=== PATIENT | female | born 1980 | race Caucasian/White ===

== ENCOUNTER → 2017-04-09 | Outpatient (CLI) | payer OTHER ==
[~2017-04-09] MED LIST: BUPR1SUB23 SL; CLON1TAB3 PO; GABA800T PO
[2017-04-09 16:38] LABS: BASO % 0.2 %; BASO ABS # 0.01 K/uL (0-0.2); EOS % 2.2 %; HEMATOCRIT 22.8 % (37-47); IG% 0.4 %; LYMPH % 22.6 %; LYMPH ABS # 1.22 K/uL (1.2-3.4); MEAN CELL VOLUME 93.1 fL (80-100); MEAN CORPUSCULAR HEMOGLOBIN 30.2 pg (25-34); MEAN CORPUSCULAR HGB CONC 32.5 g/dl (32-36); MEAN PLATELET VOLUME 9.1 fL (7.4-10.4); MONO % 6.5 %; NEUT % 68.1 %; PLATELET COUNT 267 K/uL (130-400); RED BLOOD COUNT 2.45 M/uL (4.2-5.4); WHITE BLOOD COUNT 5.39 K/uL (4.8-10.8)
[2017-04-09 17:07] LABS: ALT/SGPT 15 U/L (12-78); BLOOD UREA NITROGEN 18 mg/dl (7-18); BUN/CREATININE RATIO 9.5 (10-20); CALCIUM 7.9 mg/dl (8.5-10.1); CARBON DIOXIDE 23 mmol/L (21-32); CHLORIDE 106 mmol/L (98-107); GLUCOSE 87 mg/dl (70-99); POTASSIUM 4.3 mmol/L (3.5-5.1); SODIUM 134 mmol/L (136-145)
[2017-04-09 17:10] LABS: ALB/GLOB RATIO 0.3 (0.9-2); ALKALINE PHOSPHATASE 136 U/L (45-117); AST/SGOT 27 U/L (15-37); C-REACTIVE PROTEIN 7.95 mg/dl (0-0.29)
[2017-04-09 17:24] LABS: COMPLETE YES; SPHEROCYTE 1+
== END | disposition home or self-care (01) ==
LOC: C.LAB1850 15:22
PROVIDERS: ATTEND Internal Medicine Infectious Disease
DX: Z00.00 Encounter for general adult medical examination without abnormal findings (principal)

== ENCOUNTER 2019-01-01 11:11 | Inpatient (IN) ==
--- OUTSIDE RECORDS SUMMARY | 2019-01-01 11:15 | External Medical Summary | Continuity of Care Document ---
:1980 Author Name Kristine Leslie Address Unavailable Unavailable , Care Team Providers Name Role Phone Tasia Unavailable [email or web address] Leslie Unavailable [email or web address] Unavailable [email or web address], [email or web address] Unavailable Unavailable Unavailable Unavailable Unavailable Problems Paraparesis (Lower Extremities) (344.1) Urine Content Abnormal Incomplete emptying of bladder (788.21) (R33.9) Tingling (782.0) (R20.2) Bipolar I disorder, single manic episode (296.00) (F30.9) Chronic pain (338.29) (G89.29) Decubitus ulcer (707.00) (L89.90) Vertebral osteomyelitis (730.28) (M46.20) Allergies and Adverse Reactions Abilify (Allergy) Bactrim TABS (Allergy) Reaction: Hives Morphine Derivatives (Allergy) Titanium (Allergy) Reaction: Nausea, Vomiting, Anemia Toradol (Allergy) Medications Doxycycline Monohydrate 100 MG Oral Caps ule; TAKE 1 CAPSULE TWICE DAILY WITH FOOD. DO Tonia Haines Start: 14-May-2017 Quantity: 56 Refills: 1 clonazePAM 0.5 MG Oral Tablet; TAKE 1 TABLET 3 TIMES DAILY A S NEEDED. Start: 09-Apr-2017 Refills: 0 Gabapentin 800 MG Oral Tablet; TAKE 1 TABLET 3 TIMES DAILY. Start: 09-Apr-2017 Refills: 0 fentaNYL 75 MCG/HR Transdermal Patch 72 Hour; APPLY 1 PATCH EVERY 3 DAYS Start: 09-Apr-2017 Refills: 0 Catheter Red Rubber Coated MISC; USE FAVIAN LY DIRECTED.12 [employer] Red Rubber Hose DO Elie Dozier Start: 21-Dec-2013 Quantity: 30 Refills: 0 Procedures History of Back Surgery Status: Complete d History of Cholecystectomy Laparoscopic Status: Completed History of Amputation Of Leg Above Knee Status: Completed Immunizations Immunizations not documented Family History Father Family history of Acute Myocardial Infarction (V17.3) Status : Active Family history of Hypertension (V17.49) Status: Active Mother Family history of Angina Pectoris Status: Active Family history of Hypertension (V17.49) Status: Active Grandfather Family history of Hypertension (V17.49) Status: Active Family history of Coronary Artery Disease (V17.49) Status: A ctive Grandmother Family history of Type 2 Diabetes Mellitus Status: Active Family history of Hypertension (V17.49) Status: Active Social History - Smoking Status Current every day smoker Plan of Treatment Planned Encounters Appointment; Yi Cochran M.D. Start: 26-Jan-2019 14:20 Request Planned Observations Planned Goals not documented Results No Known Results Results not documented Encounters Appointment; Tonia Haines DO 17-Sep-2017 14:00 Encounter Diagnosis: Problem not documented Appointment; Tonia Haines DO 11-Jun-2017 14:00 Encounter Diagnosis: Problem not documented Appointment; Tonia Haines DO 14-May-2017 13:15 Encounter Diagnosis: Problem not documented Appointment; Tonia Haines DO 09-Apr-2017 14:30 Encounter Diagnosis: Problem not documented Appointment; Yi Cochran M.D. 26-Jan-2019 14:20 Encounter Diagnosis: Problem not documented
[2019-01-01 11:56] LABS: Basophils # (auto) 0.01 K/uL (0-0.2); Basophils % (auto) 0.1 %; Eosinophils % (auto) 1.2 %; Hemoglobin 7.7 g/dL (12.0-16.0); Immature Granulocytes # (auto) 0.03 K/uL (0.00-0.02); Immature Granulocytes % (auto) 0.4 %; Lymphocytes # (auto) 1.08 K/uL (1.2-3.4); Lymphocytes % (auto) 13.2 %; Mean Corpuscular Hgb Conc 33.5 g/dL (32-36); Mean Corpuscular Volume 96.2 fL (80-100); Mean Platelet Volume 9.6 fL (7.4-10.4); Monocytes # (auto) 0.41 K/uL (0.11-0.59); Neutrophils # (auto) 6.58 K/uL (1.4-6.5); Neutrophils % (auto) 80.1 %; Platelet Count 218 K/uL (130-400); RDW Coefficient of Variation 13.7 % (11.5-14.5); Red Blood Count 2.39 M/uL (4.2-5.4); White Blood Count 8.21 K/uL (4.8-10.8)
[2019-01-01 12:02] LABS: iSTAT Creatinine 9.8 mg/dl (0.6-1.3); iSTAT Hemoglobin 8.8 g/dl (12.0-16.0); iSTAT Ionized Calcium 1.01 mmol/l (1.12-1.32)
[2019-01-01 12:08] LABS: INR 1.2 (0.9-1.1); Partial Thromboplastin Ratio 1.1; Partial Thromboplastin Time 30.5 Seconds (21.0-31.0); Prothrombin Time 11.7 Seconds (9.0-12.0)
--- NOTE | 2019-01-01 12:12 | XRay Report ---
SINGLE VIEW CHEST CLINICAL HISTORY: Dyspnea. FINDINGS: An AP, portable, upright chest radiograph is compared to study dated 11/18/2009. The examina tion is degraded by portable technique and patient rotation. A right internal jugular central venous catheter is in place. The tip projects over the right atrium. The heart is top normal for projection. There is pulmonary vascular congestion. There is elevation of right hemidiaphragm end bibasilar atel ectasis. Trace pleural effusions are suspected. No pneumothorax is seen. The bony thorax is grossly i ntact. IMPRESSION: 1. There is mild pulmonary vascular congestion. 2. Trace pleural effusions are noted. 3. A right internal jugular central venous catheter is in place. Electronically signed by: Ori Cruz M.D. 01/01/2019 12:10 PM
[2019-01-01 12:13] LABS: RBC Morphology Unremarkable
[2019-01-01] MEDS ORDERED: NITROGLYCERIN 2% OINTMENT 30GM TUBE EXT ONE (12:22)
[2019-01-01 12:35] LABS: Alanine Aminotransferase 18 U/L (12-78); Albumin Globulin Ratio 0.8 (0.9-2); Albumin Level 3.5 gm/dl (3.4-5.0); Alkaline Phosphatase 86 U/L (45-117); Aspartate Aminotransferase 24 U/L (15-37); BUN Creatinine Ratio 11.5 (10-20); Bilirubin,Total 0.5 mg/dl (0.2-1); Blood Urea Nitrogen 104 mg/dl (7-18); Carbon Dioxide 20 mmol/L (21-32); Chloride 96 mmol/L (98-107); Est GFR (African American) 5.8; Globulin 4.5 gm/dl (2.5-4.0); Glucose 95 mg/dl (70-99); Magnesium 2.8 mg/dl (1.8-2.4); Sodium 131 mmol/L (136-145); Troponin I 0.022 ng/ml (0-0.045)
[2019-01-01] MEDS ORDERED: HYDROmorphone INJ 0.5 MG/0.5 ML SYR IV STA (12:59)
[2019-01-01] MEDS ORDERED: ONDANSETRON INJ 2 MG/ML 2 ML VIAL IV STA (12:59)
[2019-01-01] MEDS ORDERED: SODIUM CHLORIDE 0.9% 1000ML 1,000 ML IV PRN (12:59)
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
--- NOTE | 2019-01-01 13:44 | Emergency Department Note ---
Entered by Maya Betancourt acting as a scribe for Eduarda Lockhart MD History of Present Illness General Chief complaint: Shortness of Breath/Dyspnea Stated complaint: SOB,FLUID Time Seen by Provider: 01/01/19 11:27 Source: patient and other (nursing staff) History of Present Illness Provider complaint: shortness of breath Onset (ago): hour(s) (today) Location: chest Maximum Pain Intensity: 9 Quality: + other (shortness of breath ) Associated symptoms: + other (hit head) The patient is a 38 year old female who presents to the Emergency Department with complaints of shortness of breath today. She rates her discomfort at a 9/10. Per nursing staff, the patient was 80% on room air upon arrival. Nursing staff states that the patient fell off of her bed and hit her head. Per nursing staff, the patient goes to dialysis but did not go in 6 days as they are "not nice there" per the patient. Home Medications Home Medications Medication Instructions Recorded Confirmed Type albuterol sulfate [Ventolin HFA] 2 puff INHALATION Q6H PRN 01/01/19 01/01/19 History benzonatate 100 mg PO BID 01/01/19 01/01/19 History bupropion HCl 100 mg PO DAILY 01/01/19 01/01/19 History diazepam 5 mg PO BID 01/01/19 01/01/19 History gabapentin 600 mg PO TID 01/01/19 01/01/19 History levofloxacin 500 mg PO DIRECTED 01/01/19 01/01/19 History Allergies Allergy/AdvReac Type Severity Reaction Status Date / Time morphine Allergy Mild RASH Unverified 01/01/19 12:18 aripiprazole AdvReac Intermediate ITCHY NOSE Unverified 01/01/19 12:18 & EARS Bactrim AdvReac Intermediate ITCHY NOSE Unverified 07/20/15 11:14 & EARS sulfamethoxazole AdvReac Intermediate ITCHY NOSE Unverified 01/01/19 12:18 & EARS trimethoprim AdvReac Intermediate ITCHY NOSE Unverified 01/01/19 12:18 & EARS Past Med/Surg History Medical History Hypertensive urgency (Acute) DVT prophylaxis Chronic back pain (Chronic) Non-compliance (Acute) ESRD on hemodialysis (Acute) Fluid overload (Acute) Respiratory failure (Acute) Dialysis patient (Chronic) Surgical History Above knee amputation of left lower extremity (Resolved) Social History Preferred Language: Kinyarwanda Communication Ability: Effective Cisco Administrator Required: No Current Living Situation Comment: Unknown. Unable to answer questions; no family present. Feels Safe at Home: Yes Smoking Status: Smoker, status unknown Review of Systems See HPI for pertinent positives & negatives. and A total of 10 systems reviewed and were otherwise negative Physical Exam Vital Signs Vital Signs - 24 hr 01/01/19 11:14 01/01/19 11:46 01/01/19 12:06 Temperature Source Oral Sepsis Recent Fever Within 48 Hours No Sepsis New/Unexplained Change in Mental Status No Sepsis Action Taken by Nursing No Action Required Pulse Rate 127 H Pulse Rate [Apical] 108 H Pulse Rhythm [Apical] Pulse Strength [Apical] Respiratory Rate 50 H 22 Respiratory Effort / Characteristics Non-Labored Respiratory Depth Normal Respiratory Pattern Regular Blood Pressure [Right Arm] 232/144 H Blood Pressure Mean [Right Arm] 173 Blood Pressure Position Sitting Blood Pressure Position [Right Arm] Pulse Oximetry 81 L 81 L 100 Oxygen Delivery Method Room Air Room Air Non-rebreather Oxygen Flow Rate 01/01/19 12:08 01/01/19 12:37 01/01/19 13:31 Temperature Source Sepsis Recent Fever Within 48 Hours Sepsis New/Unexplained Change in Mental Status Sepsis Action Taken by Nursing Pulse Rate Pulse Rate [Apical] 112 H 101 H Pulse Rhythm [Apical] Regular Pulse Strength [Apical] Normal Respiratory Rate 22 22 Respiratory Effort / Characteristics Non-Labored Spontaneous Non-Labored Spontaneous Respiratory Depth Normal Normal Respiratory Pattern Regular Regular Blood Pressure [Right Arm] 162/130 H 208/122 H Blood Pressure Mean [Right Arm] 140 150 Blood Pressure Position Blood Pressure Position [Right Arm] Sitting Sitting Pulse Oximetry 100 93 92 Oxygen Delivery Method Non-rebreather Nasal Cannula Nasal Cannula Oxygen Flow Rate 13 2 4 Vital signs reviewed. Markedly hypertensive. General: Chronically ill-appearing female, in no significant distress. HEENT: No scleral icterus, PERRLA, neck supple. Atraumatic. Cardiovascular: Regular but tachycardic, no extra sounds. Pulmonary: Non-rebreather in place. Coarse breath sounds bilaterally. In some respiratory discomfort. Maintaining O2 sats well on NRB->weaned to n/c Abdomen: Soft, nontender, obese, nondistended, positive bowel sounds. Musculoskeletal: Left AKA. Minimal RLE edema, deconditioned. Neurologic: Patient awake but somnolent. Skin: Warm, dry, no rash Course 1131: The patient was evaluated in room A1. A history and physical were performed. 1140: I inserted an External Jugular Catheter. 2 attempts. 1232: I discussed the patient's case with Dr. Ryan Chávez who will evaluate the patient for further management. 1241: I updated the patient who verbalized agreement and understanding of the treatment plan. 1253: I discussed the patient's case with Dr. Cochran-Nephrology. Consultations Consultation #1: Dr. Ryan Chávez Time: 12:32 Consultation #2: Dr. Cochran-Nephrology Time: 12:53 Administered Medications Discontinued Medications Hydrocodone Bitart/Acetaminophen ([place] 5/325) 1 tab PO Q6H PRN PRN Reason: Pain Stop: 01/16/19 12:26 Last Admin: 01/02/19 13:31 Dose: 1 tab Documented by: [id number] Amlodipine Besylate (Norvasc) 10 mg PO QAM [facility] Stop: 02/01/19 08:59 Last Admin: 01/02/19 13:29 Dose: 10 mg Documented by: [id number] Benzonatate (Tessalon Perle) 100 mg PO BID [facility] Stop: 01/31/19 20:59 Last Admin: 01/02/19 08:21 Dose: 100 mg Documented by: [id number] Admin: 01/01/19 20:46 Dose: 100 mg Documented by: [id number] Bupropion HCl (Wellbutrin-Sr) 100 mg PO DAILY [facility] Stop: 02/01/19 08:59 Last Admin: 01/02/19 08:21 Dose: 100 mg Documented by: [id number] Diazepam (Valium) 5 mg PO BID [facility] Stop: 01/31/19 20:59 Last Admin: 01/02/19 08:19 Dose: 5 mg Documented by: [id number] Admin: 01/01/19 20:46 Dose: 5 mg Documented by: [id number] Enoxaparin Sodium (Lovenox) 30 mg SQ Q24H [facility] Stop: 01/31/19 14:11 Last Admin: 01/01/19 15:32 Dose: Not Given Documented by: [id number] Epoetin Mauro (Procrit) 20,000 units IV 1430 [facility] Stop: 01/01/19 23:00 Last Admin: 01/01/19 16:24 Dose: 20,000 units Documented by: [id number] Gabapentin (Neurontin) 600 mg PO TID [facility] Stop: 01/31/19 14:11 Last Admin: 01/02/19 08:21 Dose: 600 mg Documented by: [id number] Admin: 01/01/19 20:46 Dose: 600 mg Documented by: [id number] Admin: 01/01/19 15:18 Dose: Not Given Documented by: [id number] Heparin Sodium (Porcine) (Heparin Sodium (Porcine)) 5,000 units SQ Q8 [facility] Stop: 01/31/19 21:59 Last Admin: 01/02/19 13:30 Dose: 5,000 units Documented by: [id number] Cosigned by: [id number] Admin: 01/02/19 06:26 Dose: 5,000 units Documented by: [id number] Cosigned by: [id number] Admin: 01/01/19 20:47 Dose: 5,000 units Documented by: [id number] Cosigned by: [id number] Hydromorphone HCl (Dilaudid) 0.5 mg IV NOW STA Stop: 01/01/19 13:00 Last Admin: 01/01/19 13:15 Dose: 0.5 mg Documented by: [id number] Hydromorphone HCl (Dilaudid) 0.5 mg IV Q3H PRN PRN Reason: Pain Stop: 01/15/19 14:11 Last Admin: 01/02/19 08:25 Dose: 0.5 mg Documented by: [id number] Admin: 01/02/19 05:46 Dose: 0.5 mg Documented by: [id number] Admin: 01/02/19 01:24 Dose: 0.5 mg Documented by: [id number] Admin: 01/01/19 21:10 Dose: 0.5 mg Documented by: [id number] Sodium Chloride (Nss 1000ml) 1,000 mls @ 0 mls/hr IV .Q0M PRN PRN Reason: For Hemodialysis Use ONLY Stop: 01/01/19 18:58 Last Infusion: 01/01/19 16:33 Dose: 0 mls/hr Documented by: [id number] Admin: 01/01/19 16:24 Dose: 350 mls/hr Documented by: [id number] Calcium Gluconate 1,000 mg/ (Sodium Chloride) 60 mls @ 240 mls/hr IV NOW STA Stop: 01/01/19 14:31 Last Infusion: 01/01/19 15:32 Dose: 0 mls/hr Documented by: [id number] Admin: 01/01/19 15:18 Dose: 240 mls/hr Documented by: [id number] Nicardipine HCl 25 mg/ Sodium (Chloride) 250 mls @ 0 mls/hr IV .Q0M [facility] Stop: 01/31/19 14:44 Last Infusion: 01/02/19 19:11 Dose: 0 mg/hr, 0 mls/hr Documented by: [id number] Infusion: 01/02/19 09:02 Dose: 0 mg/hr, 0 mls/hr Documented by: [id number] Admin: 01/02/19 08:21 Dose: 5 mg/hr, 50 mls/hr Documented by: [id number] Cosigned by: [id number] Infusion: 01/02/19 08:21 Dose: 5 mg/hr, 50 mls/hr Documented by: [id number] Cosigned by: [id number] Infusion: 01/02/19 06:55 Dose: 5 mg/hr, 50 mls/hr Documented by: [id number] Cosigned by: [id number] Admin: 01/02/19 03:35 Dose: 5 mg/hr, 50 mls/hr Documented by: [id number] Cosigned by: [id number] Infusion: 01/02/19 03:35 Dose: 5 mg/hr, 50 mls/hr Documented by: [id number] Cosigned by: [id number] Admin: 01/01/19 22:47 Dose: 5 mg/hr, 50 mls/hr Documented by: [id number] Cosigned by: [id number] Infusion: 01/01/19 22:30 Dose: 5 mg/hr, 50 mls/hr Documented by: [id number] Cosigned by: [id number] Infusion: 01/01/19 18:45 Dose: 5 mg/hr, 50 mls/hr Documented by: [id number] Cosigned by: [id number] Infusion: 01/01/19 16:33 Dose: 0 mg/hr, 0 mls/hr Documented by: [id number] Admin: 01/01/19 15:17 Dose: 5 mg/hr, 50 mls/hr Documented by: [id number] Cosigned by: [id number] Metoprolol Tartrate ([facility]op[facility]) [facility] [place] Stop: 02/01/19 08:59 Last Admin: 01/02/19 11:45 Dose: Not Given Documented by: [id number] Miscellaneous (Carbohydrates For Hypoglycemia) 15 gm PO ONCE PRN PRN Reason: Hypoglycemia Treatment Stop: 02/01/19 08:59 Last Admin: 01/02/19 13:43 Dose: 15 gm Documented by: [id number] Admin: 01/02/19 09:17 Dose: 15 gm Documented by: [id number] Admin: 01/02/19 09:01 Dose: 15 gm Documented by: [id number] Nitroglycerin (Nitro-Bid 2%) 1 inch EXT NOW ONE Stop: 01/01/19 12:23 Last Admin: 01/01/19 15:18 Dose: Not Given Documented by: [id number] Nitroglycerin (Nitro-Bid 2%) 1 inch EXT Q6H [facility] Stop: 01/31/19 14:59 Last Admin: 01/02/19 13:30 Dose: Not Given Documented by: [id number] Admin: 01/02/19 08:22 Dose: Not Given Documented by: [id number] Admin: 01/02/19 04:03 Dose: Not Given Documented by: [id number] Admin: 01/01/19 20:47 Dose: 1 inch Documented by: [id number] Admin: 01/01/19 15:19 Dose: Not Given Documented by: [id number] Ondansetron HCl (Zofran) 4 mg IV NOW STA Stop: 01/01/19 13:00 Last Admin: 01/01/19 13:15 Dose: 4 mg Documented by: [id number] Ondansetron HCl (Zofran) 4 mg IV NOW STA Stop: 01/02/19 01:20 Last Admin: 01/02/19 01:24 Dose: 4 mg Documented by: [id number] Pantoprazole Sodium (Protonix) [address] [facility] Stop: 02/01/19 08:59 Last Admin: 01/02/19 08:21 Dose: 40 mg Documented by: [id number] Pneumococcal Polyvalent Vaccine (Pneumovax-23) 25 mcg IM .ONCE ONE Stop: 01/01/19 20:46 Last Admin: 01/02/19 08:22 Dose: Not Given Documented by: [id number] Medical Decision Making Differential Diagnosis Differential diagnosis: Etiologies such as infections, reactive airway disease, COPD, pneumonia, pleural effusion, pulmonary edema, ARDS, pneumothorax, CHF, cardiac ischemia, cardiac tamponade, dysrhythmia, anemia, pulmonary embolism, musculoskeletal, gastrointestinal process, as well as others were entertained. Medical Records Attestation: I reviewed the patient's medical records. Home Medications Current Medication List: was personally reviewed by me Laboratory Data Attestation: I reviewed the patient's lab results. Result diagrams: 01/02/19 05:23 01/02/19 05:23 Lab Results 01/01/19 01/01/19 01/01/19 Range/Units 11:40 11:40 11:40 WBC 8.21 (4.8-10.8) K/uL RBC 2.39 L (4.2-5.4) M/uL Hgb 7.7 L (12.0-16.0) g/dL POC Hgb (12.0-16.0) g/dl Hct 23.0 L (37-47) % POC Hct (37-47) % MCV 96.2 (80-100) fL MCH 32.2 (25-34) pg MCHC 33.5 (32-36) g/dL RDW Std Deviation 48.0 H (36.4-46.3) fL RDW Coeff of Luciano 13.7 (11.5-14.5) % Plt Count 218 (130-400) K/uL MPV 9.6 (7.4-10.4) fL Immature Gran % (Auto) 0.4 % Neut % (Auto) 80.1 % Lymph % (Auto) 13.2 % [place] % (Auto) 5.0 % Eos % (Auto) 1.2 % Baso % (Auto) 0.1 % Immature Gran # (Auto) 0.03 H (0.00-0.02) K/uL Neut # (Auto) 6.58 H (1.4-6.5) K/uL Lymph # (Auto) 1.08 L (1.2-3.4) K/uL [place] # (Auto) 0.41 (0.11-0.59) K/uL Eos # (Auto) 0.10 (0-0.5) K/uL Baso # (Auto) 0.01 (0-0.2) K/uL RBC Morphology Unremarkable PT 11.7 (9.0-12.0) Seconds INR 1.2 H (0.9-1.1) APTT 30.5 (21.0-31.0) Seconds PTT Ratio 1.1 POC Sodium (135-144) mEq/L Sodium 131 L (136-145) mmol/L POC Potassium (3.3-5.0) mEq/L Potassium 5.0 (3.5-5.1) mmol/L POC Chloride (101-112) mEq/L Chloride 96 L (98-107) mmol/L Carbon Dioxide 20 L (21-32) mmol/L POC Total CO2 (24-31) mEq/l Anion Gap 15.0 H (3-11) POC Anion Gap (16-25) mmol/L POC BUN (7-18) mg/dl BUN 104 H (7-18) mg/dl Creatinine 9.05 H* (0.6-1.2) mg/dl POC Creatinine (0.6-1.3) mg/dl Est Cr Clr Drug Dosing Not Reportable Est GFR ( Amer) 5.8 Est GFR (Non-Af Amer) 5.0 BUN/Creatinine Ratio 11.5 (10-20) Glucose 95 (70-99) mg/dl POC Glucose (other) (70-99) mg/dl Calcium 8.0 L (8.5-10.1) mg/dl POC Ioniz Calcium Hugh (1.12-1.32) mmol/l Magnesium 2.8 H (1.8-2.4) mg/dl Total Bilirubin 0.5 (0.2-1) mg/dl AST 24 (15-37) U/L ALT 18 (12-78) U/L Alkaline Phosphatase 86 (45-117) U/L Troponin I 0.022 (0-0.045) ng/ml Total Protein 8.0 (6.4-8.2) gm/dl Albumin 3.5 (3.4-5.0) gm/dl Globulin 4.5 H (2.5-4.0) gm/dl Albumin/Globulin Ratio 0.8 L (0.9-2) Hep Bs Antigen (Neg) Hep Bs Antibody Hep Bs Antibody, Quant (>or=10mIU/mL Immune) mIU/mL 01/01/19 01/01/19 Range/Units 11:40 11:45 WBC (4.8-10.8) K/uL RBC (4.2-5.4) M/uL Hgb (12.0-16.0) g/dL POC Hgb 8.8 L (12.0-16.0) g/dl Hct (37-47) % POC Hct 26 L (37-47) % MCV (80-100) fL MCH (25-34) pg MCHC (32-36) g/dL RDW Std Deviation (36.4-46.3) fL RDW Coeff of Luciano (11.5-14.5) % Plt Count (130-400) K/uL MPV (7.4-10.4) fL Immature Gran % (Auto) % Neut % (Auto) % Lymph % (Auto) % [place] % (Auto) % Eos % (Auto) % Baso % (Auto) % Immature Gran # (Auto) (0.00-0.02) K/uL Neut # (Auto) (1.4-6.5) K/uL Lymph # (Auto) (1.2-3.4) K/uL [place] # (Auto) (0.11-0.59) K/uL Eos # (Auto) (0-0.5) K/uL Baso # (Auto) (0-0.2) K/uL RBC Morphology PT (9.0-12.0) Seconds INR (0.9-1.1) APTT (21.0-31.0) Seconds PTT Ratio POC Sodium 131 L (135-144) mEq/L Sodium (136-145) mmol/L POC Potassium 5.0 (3.3-5.0) mEq/L Potassium (3.5-5.1) mmol/L POC Chloride 97 L (101-112) mEq/L Chloride (98-107) mmol/L Carbon Dioxide (21-32) mmol/L POC Total CO2 20 L (24-31) mEq/l Anion Gap (3-11) POC Anion Gap 20.0 (16-25) mmol/L POC BUN 114 H* (7-18) mg/dl BUN (7-18) mg/dl Creatinine (0.6-1.2) mg/dl POC Creatinine 9.8 H* (0.6-1.3) mg/dl Est Cr Clr Drug Dosing Est GFR ( Amer) Est GFR (Non-Af Amer) BUN/Creatinine Ratio (10-20) Glucose (70-99) mg/dl POC Glucose (other) 98 (70-99) mg/dl Calcium (8.5-10.1) mg/dl POC Ioniz Calcium Hugh 1.01 L (1.12-1.32) mmol/l Magnesium (1.8-2.4) mg/dl Total Bilirubin (0.2-1) mg/dl AST (15-37) U/L ALT (12-78) U/L Alkaline Phosphatase (45-117) U/L Troponin I (0-0.045) ng/ml Total Protein (6.4-8.2) gm/dl Albumin (3.4-5.0) gm/dl Globulin (2.5-4.0) gm/dl Albumin/Globulin Ratio (0.9-2) Hep Bs Antigen Neg (Neg) Hep Bs Antibody Immune Hep Bs Antibody, Quant 27.62 (>or=10mIU/mL Immune) mIU/mL Imaging Data Radiologist's Impression: Radiology results as stated below per my review and the radiologist's interpretation: SINGLE VIEW CHEST CLINICAL HISTORY: Dyspnea. FINDINGS: An AP, portable, upright chest radiograph is compared to study dated 11/18/2009. The examination is degraded by portable technique and patient rotati on. A right internal jugular central venous catheter is in place. The tip projects over the right atrium. The heart is top normal for projection. There is pulmonary vascular congestion. There is elevation of right hemidiaphragm end bibasilar atelectasis. Trace pleural effusions are suspected. No pneumothorax is seen. The bony thorax is grossly intact. IMPRESSION: 1. There is mild pulmonary vascular congestion. 2. Trace pleural effusions are noted. 3. A right internal jugular central venous catheter is in place. Electronically signed by: Ori Cruz M.D. 01/01/2019 12:10 PM ECG Data Attestation: I personally reviewed and interpreted this ECG as follows: Indication: SOB/dyspnea Rate (beats per minute): 116 Rhythm: sinus tachycardia Findings: + other (poor quality baseline, no acute T wave abnormalities); no nonspecific-ST abn Blood Pressure Blood Pressure Findings: Elevated blood pressure Blood Pressure Disposition: further management by hospitalist MDM Narrative THis pt was evaluated and appeared to be in some respiratory discomfort. SHe is noted to be hypoxic and hypertensive on arrival. Pt was placed on NRB by nursing with improvement. She was weaned to n/c. NTG paste was applied. Nursing was unable to get peripheral line, an EJ was inserted by me after two attempts. Pt tolerated well. EKG reveals a tachycardia, but no peaked T waves. CXR is c/w fluid overload. Pt does not make significant urine. Pt was asking for pain medication, she was given dilaudid 0.5 mg IV and zofran [address] Cochran of nephrology was contacted in addition to the hospitalist for further managment. Pt is aware of the plan and agrees. Impression & Plan Non-compliance, ESRD on hemodialysis, Fluid overload, Respiratory failure Critical Care Time The high probability of a clinically significant, sudden or life threatening deterioration of the CV/resp system(s) required my full and direct attention, intervention and personal management. The aggregate critical care time was [] minutes. This time is in addition to time spent performing reported procedures but includes the following: [x] Data Review and interpretation [x] Patient assessment and monitoring of vital signs [x] Documentation [x] Medication orders and management Critical Care Time: Yes (30) Discharge Plan Visit Data *Final* Discharge Date/Time: 01/01/19 13:33 Chief Complaint: Shortness of Breath/Dyspnea Stated Complaint: SOB,FLUID ED Provider: Eduarda Lockhart Discharge Problem: Non-compliance, ESRD on hemodialysis, Fluid overload, Respiratory failure Patient Disposition: Admitted As Inpatient Discharge Instructions Interventions: ED Discharge Assessment Last Done: 01/01/19 13:33 Discharge Problem: Fluid overload Qualifiers: Hypervolemia type: unspecified Qualified Code(s): E87.70 - Fluid overload, unspecified Respiratory failure Qualifiers: Chronicity: acute Respiratory failure complication: hypoxia Qualified Code(s): J96.01 - Acute respiratory failure with hypoxia The scribe's documentation has been prepared under my direction and personally reviewed by me in its entirety. I confirm that the note above accurately reflects all work, treatment, procedures, and medical decision making performed by me.
[2019-01-01] MEDS ORDERED: ALBUTEROL HFA 8 GM INHALER INH PRN (14:12)
[2019-01-01] MEDS ORDERED: ENOXAPARIN INJ 30 MG/0.3 ML SYR SQ SCH (14:12)
[2019-01-01] MEDS ORDERED: ICU PROTOCOL FOR HYPERGLYCEMIA PRN (14:12)
[2019-01-01] MEDS ORDERED: CALCIUM GLUCONATE 10% 1,000 MG in SODIUM CHLORIDE 0.9% 50 ML IV STA (14:17)
[2019-01-01] MEDS ORDERED: EPOETIN ALFA 20,000 UNITS/ML VIAL IV SCH (14:30)
--- NOTE | 2019-01-01 14:35 | Critical Care Consultation ---
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 neuro control BP with cardene drip respiratory supplement with O2 pNC and titrate to SpO2>92% She is on albuterol at home. No clear history of asthma/COPD. This was probably given for symptomatic relief. Will place her on albuterol nebs CV cardene drip. She does not seem to have BP meds at home or statins maintain SBP<140 and DBP<90 GI NPO for now until HD done and encephalopathy resolves pepcid IV renal IV Calcium given needs urgent HD ID she has levofloxacin at home although CXR is clear and there is no urine. Will observe off antibiotics for now and send blood cultures DVT prophylaxis SC heparin as she is uremic. Endo will send HbA1c Will check FS and cover accordingly Lines She has EJ on the left HD access on the R SC Patient is ill and I spent 55 minutes of CCtime managing her today Present on Admission?: Yes History of Present Illness Reason for Consultation: Uremic encephalopathy. Hypertensive urgency Requesting Physician: Tenzin Medina MD Attending Physician: Aram Garcia MD History of Present Illness This is a 38-year-old female with end-stage renal disease who started dialysis last year. She is not a good historian. She is somnolent and encephalopathic. She is arousable but does not give information. She seems to have missed 2 or 3 dialysis appointments. The ED reports she presented markedly short of breath and in hypertensive urgency 232/144. Apprently SpO2 was 81% on RA per INTERIOR DESIGN COORDINATOR. ABGs are pending. Her BP improved with the application of topical nitrates. She does not make any urine. She is reported to have history of back trauma and extensive back surgery involving the thoracic and lumbar spine but is only on Gabapentin and Valium. Nephrology has been contacted and will see her as soon as possible. She has a tunneled catheter in the right subclavian area visulaized on CXR and noted on PE. Concurrently she has a left upper extremity fistula with a very well palpable thrill. She is upper normal K 5.0. She is chronically anemic with Hb is 7.7 . In april 2017 it was 7.4. No evidence of active bleeding. However, she is uremic (BUN 114) both chemically and clinically At the bedside she is drowsy with [place] at 15-24/min no retraction or distress, she is arousable but falls right back into stupor. No tenderness elicited and no meaningful history. She is missing LLE Allergies Allergy/AdvReac Type Severity Reaction Status Date / Time morphine Allergy Mild RASH Unverified 01/01/19 12:18 aripiprazole AdvReac Intermediate ITCHY NOSE Unverified 01/01/19 12:18 & EARS Bactrim AdvReac Intermediate ITCHY NOSE Unverified 07/20/15 11:14 & EARS sulfamethoxazole AdvReac Intermediate ITCHY NOSE Unverified 01/01/19 12:18 & EARS trimethoprim AdvReac Intermediate ITCHY NOSE Unverified 01/01/19 12:18 & EARS Home Medications Home Medications Medication Instructions Recorded Confirmed Type albuterol sulfate [Ventolin HFA] 2 puff INHALATION Q6H PRN 01/01/19 01/01/19 History benzonatate 100 mg PO BID 01/01/19 01/01/19 History bupropion HCl 100 mg PO DAILY 01/01/19 01/01/19 History diazepam 5 mg PO BID 01/01/19 01/01/19 History gabapentin 600 mg PO TID 01/01/19 01/01/19 History levofloxacin 500 mg PO DIRECTED 01/01/19 01/01/19 History Patient History Medical History Hypertensive urgency (Acute) DVT prophylaxis Chronic back pain (Chronic) Non-compliance (Acute) ESRD on hemodialysis (Acute) Fluid overload (Acute) Respiratory failure (Acute) Dialysis patient (Chronic) Surgical History Above knee amputation of left lower extremity (Resolved) Social History Preferred Language: Slovak Feels Safe at Home: Yes Smoking Status: Current every day smoker Review of Systems Review of Systems: Unobtainable due to cognitive status Physical Exam Constitutional: + ill appearing and + altered mental status Eyes: reactive pupils ENMT: external ear and nose normal, oropharynx normal Neck: trachea midline, no thyromegaly Respiratory: Auscultation: lungs clear to auscultation bilaterally Cardiovascular: Rate/Rhythm: regular rate and regular rhythm Heart Sounds: normal S1, normal S2 and + cardiac rub; no murmur Gastrointestinal (Abdomen): normal bowel sounds, soft, nontender, no hepatosplenomegaly Musculoskeletal: Absent LLE AKA. pulses felt all over no cyanosis or edema Skin: no rashes, warm and dry dusky skin with a uremic color Neurologic: withdraws to pain in all 4 extremities Psychiatric: stuporous but arousable Results & Data Vital Signs (Past 12 Hours) Vital Signs Pulse Pulse Resp BP Pulse Ox 01/01/19 13:31 101 H 22 208/122 H 92 01/01/19 12:37 112 H 22 162/130 H 93 01/01/19 12:08 100 01/01/19 12:06 108 H 22 232/144 H 100 01/01/19 11:46 81 L 01/01/19 11:14 127 H 50 H 81 L Critical Care Time Critical Care Time: Yes Total Critical Care Time: 55 55 min (1) Respiratory failure Chronicity: acute Respiratory failure complication: hypoxia Qualified Co de(s): J96.01 - Acute respiratory failure with hypoxia
--- NOTE | 2019-01-01 14:51 | Nephrology Consultation ---
Date of Consultation January 01, 2019 Assessment & Plan (1) Respiratory failure: (2) Fluid overload: (3) Hypertensive urgency: (4) ESRD on hemodialysis: 38-year-old female with end-stage renal disease, on hemodialysis Wednesday, Wednesday, Wednesday. Presents to the hospital missed dialysis for almost a week, volume overloaded and in hypertensive urgency. Not a lot of information at this point regarding her end-stage renal disease and previous dialysis. She does have a AV fistula and tunneled dialysis catheter. Since his dialysis unit is closed on Wednesday will have to get more information from dialysis unit as well as from patient once she is more able to communicate.. --will schedule for emergency dialysis, considering missed dialysis, significantly elevated BUN and overall mental status, will do slow dialysis low blood flow for 3 hours --schedule for 4 hours dialysis tomorrow --we will use the tunneled dialysis catheter for now --Epogen 18382 units x1 dose during dialysis today --start on x1 tablet t.i.d. with meal when starts on p.o. --Nephrocaps 1 cap daily when started on p.o. Thank you for allowing me to participate in your patient's care. It was a pleasure to see Reyna History of Present Illness Reason for Consultation: End-stage renal disease on hemodialysis. Attending Physician: Aram Garcia MD History of Present Illness Reyna Christy is 38-year-old female with past medical history significant for ESRD, hypertension presented to ER with missed dialysis, volume overload and hypertensive urgency. Nephrology consult was requested to manage emergency hemodialysis for volume overload and missed dialysis chronic medical records including labs and imaging reviewed during patient's visit. Reyna presented to hospital with multiple complaints including shortness of breath, missed dialysis, " pneumonia", fall. On admission she was found to be volume overloaded, in hypertensive urgency with systolic blood pressure to 210. Her oxygen saturation was 84 percent on room air which improved to 92 percent with 4 liters nasal cannula oxygen. Blood pressure slightly improved after ni tro paste was given. She currently since very much lethargy, did not respond to any question although she seems to be awake and moving her extremities. All the information was received from EMR review and discussion with other providers and nursing staff. According to the record she has been on dialysis for last almost a year at the dialysis unit in [place]. Cause for her end-stage renal not known at this time. She has a left brachiocephalic AV fistula with thrill and bruit and seemed to have some procedure recently. She also has a right IJ tunnel dialysis catheter. She is on dialysis Wednesday, Wednesday, Wednesday and her last dialysis was last Wednesday in she missed dialysis on Wednesday and Wednesday. According to the report she did not go to the lab dialysis unit as she fell they were not nice to her. On admission her potassium was 5.0 creatinine was 9.6. Hemoglobin was 7.7. Is unclear whether she continues to make urine. Allergies Allergy/AdvReac Type Severity Reaction Status Date / Time morphine Allergy Mild RASH Unverified 01/01/19 12:18 aripiprazole AdvReac Intermediate ITCHY NOSE Unverified 01/01/19 12:18 & EARS Bactrim AdvReac Intermediate ITCHY NOSE Unverified 07/20/15 11:14 & EARS sulfamethoxazole AdvReac Intermediate ITCHY NOSE Unverified 01/01/19 12:18 & EARS trimethoprim AdvReac Intermediate ITCHY NOSE Unverified 01/01/19 12:18 & EARS Home Medications Home Medications Medication Instructions Recorded Confirmed Type albuterol sulfate [Ventolin HFA] 2 puff INHALATION Q6H PRN 01/01/19 01/01/19 History benzonatate 100 mg PO BID 01/01/19 01/01/19 History bupropion HCl 100 mg PO DAILY 01/01/19 01/01/19 History diazepam 5 mg PO BID 01/01/19 01/01/19 History gabapentin 600 mg PO TID 01/01/19 01/01/19 History levofloxacin 500 mg PO DIRECTED 01/01/19 01/01/19 History Patient History Medical History Hypertensive urgency (Acute) DVT prophylaxis Chronic back pain (Chronic) Non-compliance (Acute) ESRD on hemodialysis (Acute) Fluid overload (Acute) Respiratory failure (Acute) Dialysis patient (Chronic) Surgical History Above knee amputation of left lower extremity (Resolved) Social History Preferred Language: [place] Feels Safe at Home: Yes Smoking Status: Current every day smoker Review of Systems Review of Systems: Unobtainable due to reduced consciousness Physical Exam Physical Exam: GENERAL: middle aged female, less responsive, however occasionally open her eyes, not in any distress. HEENT: Atraumatic, normocephalic. NECK: Supple, no JVD, no carotid bruit appreciated. ENT: No sinus tenderness MOUTH and THROAT: Moist oral mucosa, RESPIRATORY: Normal breathing efforts, clear to auscultation bilaterally, no wheezes or rales. CARDIOVASCULAR: S1, S2 normal, rate rhythm regular. ABDOMEN: Soft, nontender, positive bowel sound. MUSCULOSKELETAL: No CVA tenderness. No joint swelling, erythema or tenderness. Normal range of motion. SKIN: No skin rash EXTREMITY: No lower extremity edema, left AKA, ACCESS: Left brachiocephalic AV fistula with thrill and bruit, right IJ tunnel dialysis catheter. NEURO: No gross focal neurological deficit, speech fluent. PSYCHIATRY: Normal mood and judgment Results & Data Vital Signs (Past 12 Hours) Vital Signs Pulse Pulse Resp BP Pulse Ox 01/01/19 13:31 101 H 22 208/122 H 92 01/01/19 12:37 112 H 22 162/130 H 93 01/01/19 12:08 100 01/01/19 12:06 108 H 22 232/144 H 100 01/01/19 11:46 81 L 01/01/19 11:14 127 H 50 H 81 L (1) Respiratory failure Chronicity: acute Respiratory failure complication: hypoxia Qualified Code(s): J96.01 - Acute respiratory failure with hypoxia (2) Fluid overload Hypervolemia type: unspecified Qualified Code(s): E87.70 - Fluid overload, unspecified
[2019-01-01 15:11] LABS: iSTAT Allen Test Pass; iSTAT Arterial Blood Gas HCO3 20 meg/L (19-24); iSTAT Carbon Dioxide 21 mEq/l (24-31); iSTAT Site R Radial
[2019-01-01] MEDS: GABAPENTIN 600 MG TAB PO SCH ×2 (15:18→20:46)
[2019-01-01] MEDS: NITROGLYCERIN 2% OINTMENT 30GM TUBE EXT SCH ×2 (15:19→20:47)
[2019-01-01 16:03] LABS: Hepatitis B Surface Antibody Immune
[2019-01-01 16:14] LABS: Hepatitis B Surface Antigen Neg (Neg)
[2019-01-01] MEDS ORDERED: PNEUMOCOCCAL ADMINISTRATION CHARGE ONE (20:45)
[2019-01-01] MEDS ORDERED: PNEUMOCOCCAL POLYSACCHARIDES 25 MCG/0.5 ML VIAL/SYR IM ONE (20:45)
[2019-01-01] MEDS: diazePAM 5 MG TABLET PO SCH (20:46)
[2019-01-01] MEDS: BENZONATATE 100 MG CAPSULE PO SCH (20:46)
[2019-01-01] MEDS: HEPARIN SOD 5,000 UNIT/0.5 ML VIAL SQ SCH (20:47)
[2019-01-01] MEDS: HYDROmorphone INJ 0.5 MG/0.5 ML SYR IV PRN (21:10)
[2019-01-02] MEDS ORDERED: ONDANSETRON INJ 2 MG/ML 2 ML VIAL IV STA (01:19)
[2019-01-02] MEDS: HYDROmorphone INJ 0.5 MG/0.5 ML SYR IV PRN ×3 (01:24→08:25)
[2019-01-02] MEDS: NITROGLYCERIN 2% OINTMENT 30GM TUBE EXT SCH ×3 (04:03→13:30)
[2019-01-02 05:39] LABS: Basophils # (auto) 0.01 K/uL (0-0.2); Basophils % (auto) 0.3 %; Eosinophils # (auto) 0.05 K/uL (0-0.5); Eosinophils % (auto) 1.4 %; Hematocrit (blood only) 28.1 % (37-47); Hemoglobin 9.2 g/dL (12.0-16.0); Immature Granulocytes # (auto) 0.02 K/uL (0.00-0.02); Immature Granulocytes % (auto) 0.6 %; Lymphocytes # (auto) 0.84 K/uL (1.2-3.4); Lymphocytes % (auto) 23.9 %; Mean Corpuscular Hgb Conc 32.7 g/dL (32-36); Mean Corpuscular Volume 97.2 fL (80-100); Mean Platelet Volume 9.4 fL (7.4-10.4); Monocytes # (auto) 0.25 K/uL (0.11-0.59); Monocytes % (auto) 7.1 %; Neutrophils # (auto) 2.35 K/uL (1.4-6.5); Neutrophils % (auto) 66.7 %; Platelet Count 181 K/uL (130-400); RDW Coefficient of Variation 13.8 % (11.5-14.5); RDW Standard Deviation 48.8 fL (36.4-46.3); Red Blood Count 2.89 M/uL (4.2-5.4); White Blood Count 3.52 K/uL (4.8-10.8)
[2019-01-02] MEDS: HEPARIN SOD 5,000 UNIT/0.5 ML VIAL SQ SCH ×2 (06:26→13:30)
[2019-01-02 06:27] LABS: BUN Creatinine Ratio 8.2 (10-20); Calcium 7.9 mg/dl (8.5-10.1); Creatinine Clr Calc Pharmacy 12.3 ml/min; Est GFR (Non-African American) 9.5; Magnesium 2.5 mg/dl (1.8-2.4); Potassium 3.8 mmol/L (3.5-5.1)
[2019-01-02 06:34] LABS: Estimated Average Glucose 88 mg/dl; Hemoglobin A1C 4.7 % (4.5-5.6)
[2019-01-02] MEDS ORDERED: SODIUM CHLORIDE 0.9% 1000ML 1,000 ML IV PRN (07:00)
--- NOTE | 2019-01-02 07:21 | XRay Report ---
XR chest 1V portable CLINICAL HISTORY: 38 years-old Female presenting with f/u. TECHNIQUE: Portable upright AP view of the chest was obtained. COMPARISON: 01/01/2019. FINDINGS: Tunneled right internal jugular dialysis catheter terminates in the right atrium, unchanged. Cardiac silhouette top normal in size. Interval development of a moderate right pleural effusion with signifi cantly decreased right basilar aeration. Prior pulmonary vascular prominence and central predominant hazy opacity left greater than right has resolved. Left lung and pleural space now clear. Surgical cl ips noted along the medial aspect of the left upper arm. Osseous structures normal. Cholecystectomy c lips are other surgical material projected over the right upper quadrant. IMPRESSION: 1. Interval development of a moderate right pleural effusion with right basilar atelectasis. 2. Essentially resolved pulmonary edema. Electronically signed by: Reginaldo Mccall M.D. 01/02/2019 7:19 AM
[2019-01-02] MEDS: diazePAM 5 MG TABLET PO SCH (08:19)
[2019-01-02] MEDS: GABAPENTIN 600 MG TAB PO SCH (08:21)
[2019-01-02] MEDS: BENZONATATE 100 MG CAPSULE PO SCH (08:21)
[2019-01-02] MEDS ORDERED: METOPROLOL TARTRATE 25 MG TAB PO SCH ×2 (09:00→21:00)
[2019-01-02] MEDS ORDERED: AMLODIPINE BESYLATE 5 MG TAB PO SCH (09:00)
[2019-01-02] MEDS ORDERED: PANTOprazole 40 MG TAB PO SCH (09:00)
[2019-01-02] MEDS ORDERED: BuPROPion SR 100 MG TABCR PO SCH (09:00)
[2019-01-02] MEDS: CARBOHYDRATES FOR HYPOGLYCEMIA PO PRN ×3 (09:01→13:43)
[2019-01-02 11:10] LABS: iSTAT Art Bld Gas pCO2 Correct 44 mmHg (35-46); iSTAT Art Bld Gas pH Corrected 7.256 (7.35-7.45); iSTAT Arterial Blood Gas pCO2 44 mmHg (35-46); iSTAT Arterial Blood Gas pH 7.26 (7.35-7.45)
--- NOTE | 2019-01-02 11:28 | Critical Care Progress Note ---
Date of Service January 02, 2019 Assessment & Plan (1) Hypertensive urgency: Likely due to missed hemodialysis and fluid overload (2) Non-compliance: (3) ESRD on hemodialysis: (4) Respiratory failure: hypoxmic and it is controlled with NC so far (5) Admitted to intensive care unit: 38 yo female with ESRD who is non adherent to HD with vascular complications of uremia s/p LLE AKA and who presents with hypertensive urgency uremic encephalopathy and metabolic acidosis with borderline hyperkalemia and hypocalcemia. PLAN: Neuro: Chronic benzodiazepine use -Reviewed [employer] WORKER has consistently received 5 mg diazepam quantity 60 to cover 30 days since April 19, 2018. Will continue with his current dosing -Advocate for change in medication regimen Acute encephalopathy: Resolved -Decrease gabapentin to 600 mg daily from 600 mg 3 times daily setting of HD Resp: Tobacco abuse -Weaning FiO2 CV: Hypertensive urgency -Normotensive during dialysis treatment however rebounds -We will transition to 10 mg amlodipine Repeat EKG ordered today: Evaluate QTC -Prolonged QTC: 508 Fluids/Renal: Dialysis, planned 3 L removal -Reviewed nephrology notes GI/Nutrition: Dialysis diet Heme: Anemia of chronic disease -Epogen per nephrology DVT prophylaxis: Heparin Endocrine: Hypoglycemia -Should improve with diet today, A1c within normal limits Vascular access: Left external jugular 20-gauge IV secondary to poor vascular access Code Status: Full Dr. Kim was resident physician during care of patient. I separately evaluated patient for mcgee portions of the history and the exam. I was present during the critical portion of medical decision making, and I discussed the case with the resident. I generally agree with the findings and plan. Patient was discussed in multidisciplinary rounds. If patient's blood pressure remains normalized she would be stable for downgrade to remote telemetry or later today. Subjective Ms. Christy reports she is feeling well today. She says she still has aches and pains all over her body, but is not feeling as short of breath or fatigued as she was. She is relaxing in bed and is very hungry Review of Systems Constitutional: no fever and no chills Respiratory: no cough and no dyspnea Cardiovascular: no chest pain and no dyspnea Gastrointestinal: no abdominal pain, no nausea and no vomiting Hunger Genitourinary: + flank pain On dialysis Physical Exam Constitutional: well developed, well nourished and + thin; no acute distress Eyes: PERRL, conjunctivae normal, anicteric sclerae Respiratory: normal respiratory effort, lungs clear to auscultation Auscultation: no crackles, no rales, no rhonchi and no wheezes Cardiovascular: Rate/Rhythm: regular rate and regular rhythm Heart Sounds: no click, no gallop, no murmur and no cardiac rub Vessels: dorsalis pedis pulses present (One present, other leg is missing) Gastrointestinal (Abdomen): normal bowel sounds, soft, nontender, no hepatosplenomegaly Musculoskeletal: Left leg amputated above the knee Results & Data Vital Signs (Past 12 Hours) Vital Signs Pulse Resp BP Pulse Ox 01/02/19 00:00 100 H 01/01/19 22:45 98 H 19 133/72 89 L 01/01/19 22:30 97 H 18 123/75 89 L 01/01/19 22:15 97 H 19 131/74 89 L 01/01/19 22:00 94 H 16 128/73 90 01/01/19 21:45 100 H 27 H 135/79 92 01/01/19 21:30 101 H 18 146/81 H 91 01/01/19 21:15 104 H 25 H 145/90 H 91 01/01/19 21:01 107 H 18 155/89 H 93 01/01/19 20:45 104 H 30 H 134/87 94 01/01/19 20:31 99 H 23 155/85 H 97 01/01/19 20:16 98 H 25 H 160/87 H 98 01/01/19 20:00 100 H 25 H 156/90 H 98 01/01/19 19:45 101 H 21 158/90 H 100 (1) Respiratory failure Chronicity: acute Respiratory failure complication: hypoxia Qualified Code(s): J96.01 - Acute respiratory failure with hypoxia
--- NOTE | 2019-01-02 11:32 | Nephrology Progress Note ---
Date of Service January 02, 2019 Assessment & Plan (1) ESRD on hemodialysis: 38-year-old female w/ ESRD on MWF IHD at [facility] dialysis unit. Quality Assurance Calibrator is Dr. Vieira. Patient had a L arm AVF created 11/29/[address] Cain. She currently dialyzes via R IJ THC. Ms. Christy missed dialysis for almost a week and presented to [facility] volume overloaded and in hypertensive urgency. She required emergency dialysis at the time of her admission. The patient's medical history is significant for HTN, chronic back pain s/p multiple surgeries, neurogenic bladder requiring intermittent self catheterization, PVD s/p L AKA. -- HD today. Will attempt additional 3 L UF -- Will check PRP in am (2) Anemia: -- Will check iron studies -- Will provide TABITHA w/ HD (3) Fluid overload: -- CXR film reviewed today: Mild CHF and RLL atalectasis. Will provide HD today for continued UF. ICU team will address RLL atalectasis (4) S/P admission to ICU (intensive care unit): -- 40 min critical care time provided to the patient today. This was necessary to review records, perform physical exam and discuss plan of care w/ patient, ICU team and HD RN Subjective Ms. Christy was seen & examined in the ICU this morning. Plan of care was discussed w/ the ICU team. Ms. Christy was very tearful during my visit today. She explains that she does not get along with her current Quality Assurance Calibrator in [place]. She would like to transfer her care to the [facility] dialysis unit near her home in [place], [place]. She currently denies fever, angina, dyspnea or uremic symptoms. Review of Systems Constitutional: no fever Respiratory: no dyspnea Cardiovascular: no chest pain and no palpitations Gastrointestinal: no abdominal pain, no vomiting and no diarrhea/loose stools Physical Exam Constitutional: + ill appearing; no acute distress Eyes: PERRL, conjunctivae normal, anicteric sclerae ENMT: external ear and nose normal, oropharynx normal Neck: trachea midline, no thyromegaly R IJ THC with clean dry dressing in place Respiratory: normal respiratory effort, lungs clear to auscultation Cardiovascular: RRR, no murmur, no edema Extremities: + AV fistula (+ bruit) Gastrointestinal (Abdomen): normal bowel sounds, soft, nontender, no hepatosplenomegaly Musculoskeletal: L AKA Results & Data Vital Signs (Past 12 Hours) Vital Signs Temp Pulse Pulse Resp BP Pulse Ox 01/02/19 10:05 93 H 99/73 L 01/02/19 09:45 85 122/71 01/02/19 09:33 96 H 20 110/63 97 01/02/19 09:30 90 110/63 01/02/19 09:17 96 H 118/80 96 01/02/19 09:15 97 H 118/80 01/02/19 09:00 95 H 16 138/87 96 01/02/19 08:57 96 H 18 127/74 96 01/02/19 08:54 95 H 127/74 01/02/19 08:52 91 H 17 122/67 97 01/02/19 08:50 36.5 C 89 01/02/19 08:17 94 H 19 96 01/02/19 08:16 36.5 C 95 H 18 130/89 96 01/02/19 08:01 92 H 17 107/77 95 01/02/19 07:45 92 H 16 130/78 94 01/02/19 07:31 94 H 21 128/85 94 01/02/19 07:16 92 H 13 117/72 94 01/02/19 07:02 98 H 17 134/81 94 01/02/19 00:00 100 H Laboratory Results Laboratory Tests 01/01/19 01/02/19 01/02/19 11:40 05:23 05:23 WBC 3.52 L Hgb 9.2 L Hct 28.1 L Plt Count 181 Sodium 137 Potassium 3.8 D Chloride 101 Carbon Dioxide 24 BUN 44 H D Creatinine 5.29 H* D Glucose 67 L Calcium 7.9 L Phosphorus 6.0 H Magnesium 2.5 H Albumin 3.5 Diagnostic Findings CXR 01/02/19: Tunneled right internal jugular dialysis catheter terminates in the right atrium, unchanged. Cardiac silhouette top normal in size. Interval development of a moderate right pleural effusion with significantly decreased right basilar aeration. Prior pulmonary vascular prominence and central predominant hazy opacity left greater than right has resolved. Left lung and pleural space now clear. Surgical clips noted along the medial aspect of the left upper arm. Osseous structures normal. Cholecystectomy clips are other surgical material projected over the right upper quadrant. (1) Fluid overload Hypervolemia type: unspecified Qualified Code(s): E87.70 - Fluid overload, unspecified
[2019-01-02] MEDS ORDERED: HYDROCODONE/ACETAMOPHEN 5/325MG TAB PO PRN (12:27)
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
--- NOTE | 2019-01-02 20:24 | History & Physical Bridge Note ---
Date of Service January 02, 2019 History & Physical Bridge Note Called by nursing staff that patient was voicing that she was going to leave the hospital. Despite encouragement from nursing staff to remain hospitalized the patient was adamant about hospital d/c. I came to the bedside about 6pm this evening. Patient was sitting in bed and attempting to call her sons in [place]. When I asked her why she was going to leave she said "I miss my dog; I'll be more comfortable at home." She had voiced to the nursing staff earlier in the day that she was upset with her pain control for her chronic back issues. I explained to her that we needed a better plan in place for her outpatient dialysis since she had missed the prior week's HD sessions in [place] and since she was disenchanted with the care she had been receiving there. She told multiple providers today she was not going back to [place] for HD. I reassured the patient we were exploring whether she might be a candidate to get her dialysis in [place] and that social work was working on this today. Despite all of the above the patient was adamant about hospital discharge. I told her if she left it would be AMA (against medical advice). She seemed familiar with the AMA process as she stated "I've done it before." I made her aware that if she left AMA we would NOT continue to work on getting her in the [place] [facility] unit. In response to that she said "I'll just go to [place]" (for dialysis). I made it clear that if she missed future HD sessions she could end up in respiratory failure like this admission or even . She voiced understanding. After this encounter I told the patient I would be transferring her to telemetry. About 30 minutes later I was informed that the patient indeed left AM. I do believe the patient has capacity to make her own medical decisions. She was awake, alert, and oriented during this discussion. She was counseled on risks of morbidity and mortality from leaving AMA. Her sons apparently picked her up this evening. Woody Siegel MD
[2019-01-03] MEDS ORDERED: SERTRALINE HCL 50 MG TABLET PO SCH (09:00)
[2019-01-03] MEDS ORDERED: GABAPENTIN 300 MG CAP PO SCH (09:00)
== END 2019-01-02 19:45 | disposition left against medical advice (07) | DRG 682 ==
LOC: ED 11:11 → SUATTDRO 13:11 → 1E 13:11
DX: D63.8 Anemia in other chronic diseases classified elsewhere; G93.49 Other encephalopathy; Z99.2 Dependence on renal dialysis; G89.29 Other chronic pain; F41.8 Other specified anxiety disorders; F17.210 Nicotine dependence, cigarettes, uncomplicated; J96.01 Acute respiratory failure with hypoxia; N18.6 End stage renal disease; Z91.15 Patient's noncompliance with renal dialysis; E87.70 Fluid overload, unspecified; I16.0 Hypertensive urgency; M54.9 Dorsalgia, unspecified; Z79.899 Other long term (current) drug therapy